=== PATIENT | male | born 1950 | race Caucasian/White ===

== ENCOUNTER 2016-12-22 07:40 | Observation (INO) | payer OTHER ==
--- NOTE | 2016-12-22 08:12 | PDOC ---
Abdomen/Flank HPI - General Date Seen by Provider: 12/22/16 Time Seen by Provider: 08:07 Source: POSITIVE: Patient Exam Limitations: POSITIVE: No limitations Nurse's Notes Reviewed & Considered: Yes <Musa Choi - Last Filed: 12/22/16 09:01> - General Date Seen by Provider: 12/22/16 Time Seen by Provider: 09:15 Source: POSITIVE: Patient, RN/MD Exam Limitations: POSITIVE: No limitations Nurse's Notes Reviewed & Considered: Yes - History of Present Illness Body Location Affected: REPORTS: Abdomen Timing: REPORTS: Gradual, Getting Worse Duration: <24 hours (Approximately 12 hours) Severity: Moderate Quality: REPORTS: "Pain" Abdominal Pain Onset Location: REPORTS: Generalized abdomen Abdominal Pain Radiation: REPORTS: No radiation Context: DENIES: None, Activity, Bending, Coughing, Fall, Lifting, Near Fall, Rest, Sitting, Sleep, Standing, Turning, Emotional stress, Camping, Bad Food, Out of Country Travel, Other, Recent Surgery, Recent Trauma Modifying Factors: improves with: Palpation, Movement Associated Symptoms: REPORTS: Nausea. DENIES: Denies symptoms, Back pain, Bloody Emesis, Chest pain, Coffee Grounds Emesis, Chills, Diaphoresis, Fever, Fatigue, Headache, Heartburn, Loss of Appetite, Rash, Shortness of breath, Swelling/mass in abdomen, Syncope, Testicular Pain, Vomiting, Weakness, Grossly Bloody Diarrhea, Constipation, Diarrhea, Dysuria, Incontinent Stool, Incontinent Urine, Mucous Diarrhea, Difficulty Walking, Dizziness, Light Headedness, Numbness, Other Similar Symptoms Previously: No Recent Care Received: REPORTS: Denies Any Prior Injuries Related to Current Complaint?: No <DEJON NAVA - Last Filed: 12/22/16 22:19> - General Chief Complaint: Abdomen Pain Stated Complaint: abd pain/bloating - History of Present Illness Initial Comments: This is a 66-year-old male with a history of increasing abdominal pain which started last night, is getting worse this morning. He describes it as a diffuse burning pain that radiates to his back. Mild associated nausea but no vomiting, no diarrhea, no constipation. He has no fevers chills or body aches. He's never had this pain before. He drinks one beer a day. (Musa Choi) The patient is a 66-year-old male. He presented to the emergency room at around 8 AM and was seen initially by Dr. Choi, who was the emergency physician on duty at that time. Dr. Choi obtained a CBC, CMP, amylase, lipase , urinalysis, and electrocardiogram. He also ordered a CT scan of the abdomen and pelvis with IV contrast, which was pending at the time that I assumed care of the patient at 9:10 AM. Patient states that he began to develop abdominal pain around 9 PM last night, approximately 12 hours prior to presenting to the emergency room. He complains of poorly localized abdominal pain, more in the lower abdomen than the upper abdomen. Patient has had a cholecystectomy. He states his pain has gotten progressively worse. He's not eaten anything since last night is states he has no appetite. No known fevers. No vomiting but some nausea. No diarrhea, melena, hematochezia, hematemesis, dysuria or hematuria. Dr. Choi ordered a GI cocktail and IV Protonix; patient states that this treatment has not improved his pain. (DEJON NAVA) - Patient Home Medications Home Medications: Home Medications Flunisolide [Nasarel] 2 spr NASAL 2-3XD spr 01/11/12 Fluocinonide/Emollient [Fluocinonide-E 0.05% Cream] 60 gm TP BID 01/11/12 Paroxetine HCl 20 mg ORAL QD tab 01/11/12 Aspirin 81 mg PO DAILY tab 01/26/16 Ascorbic Acid [Vitamin C] 500 mg PO DAILY 12/22/16 Multivitamins W-Minerals [Multivitamin] 1 each PO DAILY 12/22/16 - Patient Allergies Allergies/Adverse Reactions: Allergies Allergy/AdvReac Type Severity Reaction Status Date / Time tapentadol AdvReac Mild redness,ally Verified 12/22/16 14:55 h Past Medical History - heen HEENT History: Other (please comment) Additional HEENT History: WEARS GLASSES Cardiovascular History: Denies History Respiratory History: Denies History Gastrointestinal History: Denies History Genitourinary History: Other (please comment) Additional Genitourinary History: SELF CATH EVERY 3-4 HOURS Endocrine History: Denies History Musculoskeletal History: Denies History Prosthesis or Implant: No Neurological History: Denies History Blood Disorders: Denies History Psychiatric History: Depression, Other (please comment) Additional Psychiatric History: LAST PANIC ATTACK 2-3 YEARS AGO History of Sexually Transmitted Diseases: Yes (GONORRHEA 1973) Cancer History: Other (please comment) Cancer Treatment / Date(s) of Treatment: LAST RADIATION 1 MONTH AGO, TAKES "SHOTS" IN ABD EVERY 90 DAYS History of MDRO: No History of Other Communicable Diseases: No Tobacco Use: Light Tobacco Smoker (1 cigar a day) Alcohol Use: Occasionally Substance Use Type: None Previous Surgical History: Yes Type / Date of Surgery: CHOLECYSTECTOMY/COLONOSCOPY/ PROSTATECTOMY/ TONSILLECTOMY/ UMBILICAL HERNIA Anesthesia Reactions: No Malignant Hyperthermia: No Significant Family History: No pertinent family hx Past Medical History Reviewed: Reviewed - Changes Made <Musa Choi - Last Filed: 12/22/16 09:01> - heen HEENT History: Denies History Cardiovascular History: Denies History Respiratory History: Denies History Gastrointestinal History: Gallbladder Disease (Status post cholecystectomy) Genitourinary History: Denies History Endocrine History: Denies History Musculoskeletal History: Denies History Neurological History: Denies History Blood Disorders: Denies History Psychiatric History: Denies History Male Reproductive History: Denies History Cancer History: Denies History Tobacco Use: Light Tobacco Smoker (One cigar daily) Alcohol Use: Other (One beer daily) Type of alcohol normally used: Beer Substance Use Type: None Previous Surgical History: Yes Type / Date of Surgery: Cholecystectomy Past Medical History Reviewed: Reviewed - No Changes <DEJON NAVA - Last Filed: 12/22/16 22:19> ROS - Limitations ROS Limitations: No Limitations Constitution: REPORTS: Weakness. DENIES: Chills, Fever Cardiovascular: DENIES: Chest Pain Respiratory: DENIES: Shortness Of Breath Neurological: DENIES: Dizziness Gastrointestinal: REPORTS: Abdominal Pain, Nausea. DENIES: Vomitting, Diarrhea , Black Stools Musculoskeletal: REPORTS: Back Pain. DENIES: Muscle Aches Genitourinary: REPORTS: Difficulty Urinating (Self catheterizes) ENT: DENIES: Congestion, Nasal Drainage Psychiatric: POSITIVE: Anxiety <Musa Choi - Last Filed: 12/22/16 09:01> - Limitations ROS Limitations: No Limitations Constitution: REPORTS: Denies Symptoms Cardiovascular: REPORTS: Denies Cardiac Symptoms Respiratory: REPORTS: Denies Resp Symptoms Neurological: REPORTS: Denies Neuro Symptoms Gastrointestinal: REPORTS: Abdominal Pain, Nausea Endocrine: REPORTS: Denies Symptoms Musculoskeletal: REPORTS: Denies MS Symptoms Genitourinary: REPORTS: Denies Symptoms Eyes: REPORTS: Denies Symptoms ENT: REPORTS: Denies Symptoms Skin: REPORTS: Denies Skin Symptoms Lympathic: REPORTS: Denies Lympathic Symptoms Immunologic: POSITIVE: Denies Symptoms Psychiatric: POSITIVE: Denies Psych Symptoms <DEJON NAVA - Last Filed: 12/22/16 22:19> Abdominal/Flank Pain PE - General Appearance General Appearance: POSITIVE: Alert, Cooperative, Moderate Distress - HEENT HEENT: POSITIVE: PERRL. NEGATIVE: Scleral Icterus - Neck Neck: POSITIVE: Normal Inspection - Respiratory Respiratory: POSITIVE: No Respiratory Distress, Breath Sounds Normal. NEGATIVE : Wheezes, Rales, Rhonchi - Cardiovascular Cardiovascular: POSITIVE: Regular Rate and Rhythm, Heart Sounds Normal. NEGATIVE: Murmur - Chest Chest: POSITIVE: Non Tender - Skin Skin: POSITIVE: Warm, Dry, No Rash - Neurological Neurological: POSITIVE: Affect Apporpriate, Oriented X3, Motor Normal - Psychological Psychiatric: POSITIVE: Anxious <Steph,Musa Peck - Last Filed: 12/22/16 09:01> - General Appearance General Appearance: POSITIVE: Alert, Cooperative, No Acute Distress, No Evidence of Trauma - HEENT HEENT: POSITIVE: Head Inspection Nml, Eyes Inspection Nml, Ears Inspection Nml, Nose Inspection Nml, Oral/Dental Inspect. Nml, Pharynx Inspect. Nml, PERRL, EOMI - Neck Neck: POSITIVE: Normal Inspection, No Apparent Injury - Respiratory Respiratory: POSITIVE: No Respiratory Distress, Breath Sounds Normal, Chest Non- Tender - Cardiovascular Cardiovascular: POSITIVE: Regular Rate and Rhythm, Heart Sounds Normal, Equal Pulses, Strong Pulses Peripheral Pulses: Radial (R): 2+, Radial (L): 2+ - Chest Chest: POSITIVE: Non Tender - Abdomen Abdomen: Soft: (All Quadrants), No Splenomegaly: (All Quadrants), No Hepatomegaly: (All Quadrants), No Guarding: (All Quadrants), No Rebound: (All Quadrants), No Palpable Pulse: (All Quadrants), No Palpabale Mass: (All Quadrants), No Distention: (All Quadrants), No Rigidity: (All Quadrants), Tenderness Noted: (LLQ), (RLQ), (LUQ), (RUQ), Hypoactive Bowel Sounds: (LLQ), ( RLQ), (LUQ), (RUQ) - Back Back: POSITIVE: Normal Inspection. 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 He has hypoactive bowel sounds, no organomegaly, although exam is limited by body habitus. (Musa Choi) Abdominal examination shows bowel sounds to be somewhat depressed. Patient has poorly localized abdominal pain on direct palpation, mostly in the lower abdomen. No masses, organomegaly or rebound. (DEJON NAVA) - Extremities Additional Extremities Details: No pitting edema (Musa Choi) Images - Complete Complete: 1 - Abdominal pain on palpation <DEJON NAVA - Last Filed: 12/22/16 22:19> Abdomen Progress - Results Reviewed by me Lab Results Reviewed: Yes EKG Interpreted/Reviewed By Me:: Yes EKG Interpretation:: POSITIVE: Normal Sinus Rhythm, Normal Rate, Normal Intervals, Normal QRS, Normal ST/T - Patient's Progress Pain Medication Addressed: POSITIVE: Yes Re-examine Time: 09:08 Re-Examine Comment: Patient states that he has had mild improvement in pain with morphine. Status: POSITIVE: Improved <Musa Choi - Last Filed: 12/22/16 09:01> - Results Reviewed by me Xrays/CTs/US Reviewed by me: Yes Discussed with Radiologist: Yes Radiology Findings: Appendicitis Lab Results Reviewed: Yes EKG Interpreted/Reviewed By Me:: Yes (normal) EKG Interpretation:: POSITIVE: Normal Sinus Rhythm, Normal Rate, Normal Intervals, Normal [place], Normal QRS, Normal ST/T - Patient's Progress Pain Medication Addressed: POSITIVE: Yes (Patient given Dilaudid 2 mg along with Zofran 4 mg IV) School/Work Release Addressed: POSITIVE: Not Applicable Re-examine Time: 10:20 Re-Examine Comment: Diagnosis discussed with patient. Patient kept nothing by mouth. Case discussed with Dr. Ocampo, surgeon, will come to the emergency room to further evaluate and treat. Status: POSITIVE: Unchanged, Re-Examined - Consult Consult (If Yes, Name of Consulting MD & Time Called): Yes (Dr. Ocampo, surgeon, [id number]) Consulting MD will see pt:: POSITIVE: In ED, [facility] [place] Admit Counseled: POSITIVE: Patient, RE: Lab Results, RE: Radiology Results, RE: DX, RE : Need for F/U <DEJON NAVA - Last Filed: 12/22/16 22:19> - Results Reviewed by me Lab Results:: Laboratory Results 12/22/16 12/22/16 Range/Units 07:55 09:20 WBC 10.88 H (4.8-10.8) 10^3/uL RBC 4.63 L (4.70-6.10) 10^6/uL Hgb 14.5 (14.0-18.0) g/dL Hct 41.4 L (42.0-52.0) % MCV 89.4 (80-90) FL MCH 31.3 H (27-31) PG MCHC 35.0 (33-37) g/dL RDW Std Deviation 43.2 (39-50) fL RDW Coeff of Jose 13.5 (11.5-14.5) % Plt Count 198 (140-350) 10*3/uL MPV 8.7 (7.4-12.2) FL Immature Gran % (Auto) 0.3 (0-5) % Neut % (Auto) 88.1 H (50-80) % Lymph % (Auto) 4.4 L (10-50) % [place] % (Auto) 6.4 (5-15) % Eos % (Auto) 0.6 (0-8) % Baso % (Auto) 0.2 (0-1) % Immature Gran # (Auto) 0.03 10*3/UL Neut # (Auto) 9.59 10*3/UL Lymph # (Auto) 0.48 10*3/uL [place] # (Auto) 0.70 (0.3-0.8) 10*3/UL Eos # (Auto) 0.06 10*3/UL Baso # (Auto) 0.02 10*3/UL WBC Morphology Comment Normal morphology (NORM) Plt Morphology Comment Normal morphology (NORM) RBC Morph Comment Normal morphology (NORM) Sodium 135 (135-145) meq/L Potassium 3.7 L (3.8-5.2) meq/L Chloride 99 (98-112) meq/L Carbon Dioxide 24 (23-33) meq/L Anion Gap 12 (5-20) BUN 15 (7-22) mg/dL Creatinine 0.7 (0.70-1.50) mg/dL Estimated GFR > 60 (>60 ml/min/1.73m(2)) BUN/Creatinine Ratio 21.42 H (6-20) Glucose 117 H (78-110) mg/dL Calculated Osmolality 281.0 (267-292) mOsm/kg Calcium 9.3 (8.7-10.7) mg/dL Total Bilirubin 0.7 (0.3-1.2) mg/dL AST 37 (21-57) IU/L ALT 41 (21-72) IU/L Alkaline Phosphatase 101 (38-126) IU/L Troponin I < 0.012 (< 0.040) ng/mL Total Protein 7.4 (6.1-8.0) g/dL Albumin 4.4 (3.5-4.8) g/dL Globulin 3.0 (2.50-4.10) g/dL Albumin/Globulin Ratio 1.40 (1.3-2.0) mg/g Amylase 42 (30-110) U/L Lipase 52 (23-300) IU/L Ur Collection Type Cath specimen Urine Color Yellow Urine Clarity Clear (CLEAR) Urine pH 7.0 (5.0-8.5) Ur Specific [place] 1.015 (1.005-1.030) Urine Protein Negative (NEG) mg/dl Urine Glucose (UA) Negative (NEG) mg/dL Urine Ketones Negative (NEG) Urine Occult Blood Negative (NEG) Urine Nitrate Negative (NEG) Urine Bilirubin Negative (NEG) Urine Urobilinogen 0.2 (0.2) EU/dL Ur Leukocyte Esterase Negative (NEG) Ur Culture Indicated? Culture not set Patient Care Time - Estimated PCT Patient Care Time (In Minutes): 40 <DEJON NAVA - Last Filed: 12/22/16 22:19> Vital Signs - VS Reviewed Vital Signs Reviewed: Yes <DEJON NAVA - Last Filed: 12/22/16 22:19> - Recent Vital Signs Vital Signs: Vital Signs (Last 8 hours) Temp Pulse Pulse Resp BP BP Pulse Ox 12/22/16 21:00 97.4 F 75 20 150/85 97 12/22/16 19:00 78 18 12/22/16 17:00 97.9 F 78 18 172/62 95 12/22/16 16:00 97.4 F 78 18 160/89 98 12/22/16 15:45 97.8 F 68 18 170/96 97 12/22/16 15:30 97.7 F 68 18 154/84 94 12/22/16 15:15 97.4 F 67 18 149/91 96 12/22/16 15:05 97.7 F 63 20 150/82 95 12/22/16 15:00 97.7 F 65 18 148/65 95 12/22/16 14:41 97.8 F 64 12 118/72 12/22/16 14:36 68 15 140/73 12/22/16 14:26 71 24 140/71 12/22/16 14:16 65 18 132/89 12/22/16 14:11 71 17 129/56 12/22/16 14:06 71 17 131/77 Discharge <Musa Choi - Last Filed: 12/22/16 09:01> Discharge Disposition: Transferred to OR Date Decision to Admit to Inpatient: 12/22/16 Time Decision to Admit to Inpatient: 10:20 <DEJON NAVA - Last Filed: 12/22/16 22:19> Clinical Impression: Appendicitis Condition: Stable
[2016-12-22] MEDS ORDERED: Pantoprazole Inj 40 MG in Normal Saline Flush 10 ML IVP ONE (08:14)
[2016-12-22] MEDS ORDERED: NORMAL SALINE 10 ML SYRINGE FLUSH IVP PRN ×4 (08:14→14:52)
[2016-12-22] MEDS ORDERED: MORPHINE SULFATE 2 MG/1 ML IVP ONE (08:14)
[2016-12-22] MEDS ORDERED: ONDANSETRON 4 MG/2 ML VIAL IVP ONE ×2 (08:14→10:00)
[2016-12-22] MEDS ORDERED: Sodium Chloride 0.9% 1,000 ML PRIMARY IV ONE (08:14)
[2016-12-22 08:26] LABS: BASOPHILS # (AUTO) 0.02 10*3/UL; BASOPHILS % (AUTO) 0.2 % (0-1); EOSINOPHILS # (AUTO) 0.06 10*3/UL; EOSINOPHILS % (AUTO) 0.6 % (0-8); HEMATOCRIT 41.4 % (42.0-52.0); HEMOGLOBIN 14.5 g/dL (14.0-18.0); LYMPHOCYTES # (AUTO) 0.48 10*3/uL; MEAN CORPUSCULAR HEMOGLOBIN 31.3 PG (27-31); MEAN CORPUSCULAR VOLUME 89.4 FL (80-90); MEAN PLATELET VOLUME 8.7 FL (7.4-12.2); MONOCYTES % (AUTO) 6.4 % (5-15); NEUTROPHILS # (AUTO) 9.59 10*3/UL; NEUTROPHILS % (AUTO) 88.1 % (50-80); RED BLOOD COUNT 4.63 10^6/uL (4.70-6.10)
[2016-12-22 08:32] LABS: BLOOD UREA NITROGEN 15 mg/dL (7-22); BUN/CREATININE RATIO 21.42 (6-20); CALCIUM 9.3 mg/dL (8.7-10.7); EST GLOMERULAR FILTRATION > 60 (>60 ml/min/1.73m(2)); LIPASE 52 IU/L (23-300); SERUM ALBUMIN 4.4 g/dL (3.5-4.8)
[2016-12-22 08:52] LABS: PLATELET MORPHOLOGY COMMENT NORMAL MORPHOLOGY (NORM); RBC MORPHOLOGY COMMENT NORMAL MORPHOLOGY (NORM); WBC MORPHOLOGY COMMENT NORMAL MORPHOLOGY (NORM)
[2016-12-22] MEDS ORDERED: MORPHINE SULFATE 4 MG/1 ML IVP ONE (09:15)
[2016-12-22] MEDS ORDERED: Belladon/PHENobarbital Elixir 10 ML, Lidocaine Viscous Liquid 2% 15 ML, Mag Hyd/Al Hyd/... PO ONE ×3 (09:15)
[2016-12-22 09:25] LABS: BILIRUBIN,URINE NEGATIVE (NEG); COLOR,URINE YELLOW; GLUCOSE, URINE (UA) NEGATIVE (NEG); NITRATE,URINE NEGATIVE (NEG); OCCULT BLOOD,URINE NEGATIVE (NEG); PROTEIN,URINE NEGATIVE (NEG); UROBILINOGEN,URINE 0.2 EU/dL (0.2)
[2016-12-22 09:26] LABS: CLARITY,URINE CLEAR (CLEAR); URINE SAMPLE TYPE CATH SPECIMEN
[2016-12-22] MEDS: HYDROmorphone 2 MG/1 ML IVP ONE ×2 (10:12→10:32)
--- NOTE | 2016-12-22 11:15 | DI ---
CT ABDOMEN SCAN WITH IV CONTRAST, 12/22/2016 7:15 AM : Clinical History: Abdominal pain. Previous Exam: 03/09/2014. Scans are performed from the lower lung bases through the liver and kidneys with IV contrast. 75 ml o f Isovue 300 was injected IV. No oral or rectal contrast was ordered. The lung bases are clear. There is diffuse fatty infiltration of the liver. In the superior and poste rior aspect of the right lobe of the liver are multiple calcifications that were present before. Thes e may be secondary to previous trauma but more likely are related to previous exposure to either TB o r histoplasmosis. The patient is status post cholecystectomy. There is no abnormality of the spleen, pancreas, and adrenal glands. Both kidneys are normal in size, shape, position and contour. There is no hydronephrosis or hydroureter. No renal or ureteral calculi are present. There are no abnormal ret rocrural or periaortic nodes. No ascites is present. READIN. Diffuse fatty infiltration of the liver. 2. The remainder of the examination is normal. CT PELVIS SCAN WITH IV CONTRAST, 12/22/2016 7:15 AM: Clinical History: See above. Previous Exam: 03/09/2014. Scans are performed from just superior to the umbilicus to the symphysis pubis with IV contrast. This is the same bolus of contrast used for the CT scans of the abdomen. Scans through the lower abdomen and pelvis show no masses or abnormal fluid collections. There is no adenopathy. The appendix is in a retrocecal location and shows abnormal dilatation with a transverse diameter up to 12 mm in diameter. There is periserosal inflammatory/infiltrative change associated wi th the appendix. There are high density areas within the appendix near the base of the appendix and e xtending toward the mid and distal thirds of the appendix and these may represent fecaliths. There is no evidence of perforation. The small bowel is normal. There is fat within the ileocecal valve proba wilfred representing a lipoma. The colon is normal. There are no hernias. READIN. Acute appendicitis. The appendix is in a retrocecal location. There is no evidence of perforation or of an abscess. 2. The remainder of the examination is normal.
--- NOTE | 2016-12-22 11:41 | CONSULT ---
Consult Note - Consult Consult Date: 12/22/16 Reason for Consult: PreOp Consulation : General Surgery Requesting Physician: Dr. Jack Primary Care Provider: NONE NONE - History of Present Illness History of Present Illness: Patient is a 66-year-old male who had some mild abdominal discomfort yesterday. Last night at 9:00pm he developed significant right lower quadrant abdominal pain. This was progressive throughout the night. He presented to the emergency room this morning. His white count was slightly elevated at 10,800. CAT scan was done which shows findings of acute appendicitis. He has a 12 mm retrocecal appendix with inflammatory stranding. I am asked to see him for evaluation. Patient has had no fever or chills. No nausea or vomiting. He's had no appetite and has not eaten since yesterday. He's never had a pain like this before. Review of Systems - Gastrointestinal Gastrointestinal / Abdominal: REPORTS: Abdominal Pain, See HPI Past Medical History Medical History: Anxiety. Surgical History: Cholecystectomy. Prostatectomy. Tobacco Use: Light Tobacco Smoker (1 cigar a day) Substance Use Type: None Alcohol Use: Occasionally (A beer a day with his cigar.) Medication / Allergies Home Medications: Home Medications Medication Instructions Recorded Confirmed Type Flunisolide [Nasarel] 2 spr NASAL 2-3XD spr 01/11/12 02/25/16 History Fluocinonide/Emollient 60 gm TP BID 01/11/12 02/25/16 History [Fluocinonide-E 0.05% Cream] Paroxetine HCl 20 mg ORAL QD tab 01/11/12 02/25/16 History Aspirin 81 mg PO DAILY tab 01/26/16 02/25/16 History Ascorbic Acid [Vitamin C] 500 mg PO DAILY 12/22/16 12/22/16 History Multivitamins W-Minerals 1 each PO DAILY 12/22/16 12/22/16 History [Multivitamin] Allergies/Adverse Reactions: Allergies Allergy/AdvReac Type Severity Reaction Status Date / Time tapentadol AdvReac Mild redness,ally Verified 12/22/16 07:52 h Exam - Vitals Vital Signs: Vital Signs Temperature 97.3 F Temperature Source Temporal Artery Scan Pulse Rate [Pulse Oximeter 75 Right] Respiratory Rate 24 Blood Pressure [Right Arm] 168/82 Pulse Ox 95 Oxygen Delivery Method Room Air Height 5 ft 11 in Weight 87.09 kg - General General Appearance: POSITIVE: No Acute Distress, Cooperative - Respiratory Respiratory Exam: POSITIVE: Clear to Auscultation - Bilaterally, Breathing Non Labored - Cardiovascular Cardiovascular Exam: POSITIVE: No Murmur - GI/Abdominal GI/Abdominal Exam: POSITIVE: Soft, Hypoactive Bowel Sounds Additional GI/Abdominal Exam Details: Focal right lower quadrant tenderness with voluntary guarding. No peritoneal irritation. - Rectal Rectal Exam: POSITIVE: Deferred - Neurological Neurological Exam: POSITIVE: Alert, Oriented x 3 - Psychiatric Psychiatric Exam: POSITIVE: Normal Affect, Normal Mood Results - Labs CBC and BMP: 12/22/16 07:55 12/22/16 07:55 Labs - Last 24 Hours: Laboratory Results 12/22/16 12/22/16 Range/Units 07:55 09:20 WBC 10.88 H (4.8-10.8) 10^3/uL RBC 4.63 L (4.70-6.10) 10^6/uL Hgb 14.5 (14.0-18.0) g/dL Hct 41.4 L (42.0-52.0) % MCV 89.4 (80-90) FL MCH 31.3 H (27-31) PG MCHC 35.0 (33-37) g/dL RDW Std Deviation 43.2 (39-50) fL RDW Coeff of Jose 13.5 (11.5-14.5) % Plt Count 198 (140-350) 10*3/uL MPV 8.7 (7.4-12.2) FL Immature Gran % (Auto) 0.3 (0-5) % Neut % (Auto) 88.1 H (50-80) % Lymph % (Auto) 4.4 L (10-50) % [place] % (Auto) 6.4 (5-15) % Eos % (Auto) 0.6 (0-8) % Baso % (Auto) 0.2 (0-1) % Immature Gran # (Auto) 0.03 10*3/UL Neut # (Auto) 9.59 10*3/UL Lymph # (Auto) 0.48 10*3/uL [place] # (Auto) 0.70 (0.3-0.8) 10*3/UL Eos # (Auto) 0.06 10*3/UL Baso # (Auto) 0.02 10*3/UL WBC Morphology Comment Normal morphology (NORM) Plt Morphology Comment Normal morphology (NORM) RBC Morph Comment Normal morphology (NORM) Sodium 135 (135-145) meq/L Potassium 3.7 L (3.8-5.2) meq/L Chloride 99 (98-112) meq/L Carbon Dioxide 24 (23-33) meq/L Anion Gap 12 (5-20) BUN 15 (7-22) mg/dL Creatinine 0.7 (0.70-1.50) mg/dL Estimated GFR > 60 (>60 ml/min/1.73m(2)) BUN/Creatinine Ratio 21.42 H (6-20) Glucose 117 H (78-110) mg/dL Calculated Osmolality 281.0 (267-292) mOsm/kg Calcium 9.3 (8.7-10.7) mg/dL Total Bilirubin 0.7 (0.3-1.2) mg/dL AST 37 (21-57) IU/L ALT 41 (21-72) IU/L Alkaline Phosphatase 101 (38-126) IU/L Troponin I < 0.012 (< 0.040) ng/mL Total Protein 7.4 (6.1-8.0) g/dL Albumin 4.4 (3.5-4.8) g/dL Globulin 3.0 (2.50-4.10) g/dL Albumin/Globulin Ratio 1.40 (1.3-2.0) mg/g Amylase 42 (30-110) U/L Lipase 52 (23-300) IU/L Ur Collection Type Cath specimen Urine Color Yellow Urine Clarity Clear (CLEAR) Urine pH 7.0 (5.0-8.5) Ur Specific [place] 1.015 (1.005-1.030) Urine Protein Negative (NEG) mg/dl Urine Glucose (UA) Negative (NEG) mg/dL Urine Ketones Negative (NEG) Urine Occult Blood Negative (NEG) Urine Nitrate Negative (NEG) Urine Bilirubin Negative (NEG) Urine Urobilinogen 0.2 (0.2) EU/dL Ur Leukocyte Esterase Negative (NEG) Ur Culture Indicated? Culture not set - Imaging Status: Image Reviewed by Me, Report Reviewed by Me Assessment and Plan - Patient Problems (1) Acute appendicitis Current Visit: Yes Status: Acute Priority: High Diagnosis Date: 12/22/16 Comment: Proceed with appendectomy. The procedure has been discussed with the patient in complete yet simple terms including benefits, risks, and alternatives. All questions have been answered. Informed consent has been obtained.
[2016-12-22] MEDS ORDERED: Ertapenem Inj 1 GM in Sodium Chloride 0.9% 100 ML IV SCH (11:45)
[2016-12-22] MEDS ORDERED: ERTAPENEM 1 GM VIAL ONE (12:06)
[2016-12-22] MEDS ORDERED: Sodium Chloride 0.9% 100 ML IV ONE (12:06)
[2016-12-22] MEDS ORDERED: ROCURONIUM 10 MG/1 ML - 5 ML VIAL IVP ONE (12:26)
[2016-12-22] MEDS ORDERED: fentaNYL Inj 250 MCG/5 ML VIAL ONE (12:27)
[2016-12-22] MEDS ORDERED: LIDOCAINE MPF 2% - 5 ML (20 MG/1 ML) ONE (12:27)
[2016-12-22] MEDS ORDERED: MIDAZOLAM 5 MG/1 ML ONE (12:27)
[2016-12-22] MEDS ORDERED: BUPIVACAINE 0.5% W/ EPI - 10 ML VIAL ONE (12:36)
[2016-12-22] MEDS: Lactated Ringers 1,000 ML PRIMARY IV SCH ×3 (12:44→18:21)
[2016-12-22] MEDS ORDERED: KETOROLAC 30 MG/1 ML VIAL ONE (13:06)
[2016-12-22] MEDS ORDERED: ONDANSETRON 4 MG/2 ML VIAL ONE (13:06)
[2016-12-22] MEDS ORDERED: SUGAMMADEX SODIUM 200 MG/2 ML VIAL IV ONE (13:19)
[2016-12-22] MEDS ORDERED: HYDROmorphone 2 MG/1 ML IVP PRN (14:14)
[2016-12-22] MEDS ORDERED: fentaNYL Inj 100 MCG/2 ML VIAL IVP PRN (14:14)
[2016-12-22] MEDS ORDERED: PROMETHAZINE 25 MG/1 ML VIAL IM PRN (14:14)
[2016-12-22] MEDS ORDERED: Lactated Ringers 1,000 ML PRIMARY IV SCH (14:15)
--- NOTE | 2016-12-22 14:20 | GEN.OPNOTE ---
Operative Note Surgery Date: 12/22/16 Preoperative Diagnosis: Acute retrocecal appendicitis. Postoperative Diagnosis: Acute retrocecal appendicitis. Procedure: Open appendectomy. Surgeon: Ari Ocampo MD Anesthesia Provider: Zi Santos CRNA Anesthesia Type: General Estimated Blood Loss (mL): 3 Fluids: 1200 mL of crystalloid. 1 g of IV Invanz at the start of the procedure. 30 mg of IV Toradol at the end of the procedure. Pathology: Specimen to pathology. Indications: Physical exam and CT scan consistent with acute appendicitis. Findings: Acute appendicitis. No rupture. Complications: None. Operative Summary: Patient was taken to the operating room and placed on the operating table in the supine position. Following the induction of adequate general anesthetic the abdomen was prepped and draped in a sterile fashion. A surgical timeout was done. Standard incision was made over McBurney's point. It was carried down to the fascia with electrocautery. The external oblique was split along the course of its fibers using electrocautery. The external oblique was retracted. The abdominal wall was transected using a muscle-splitting technique. The peritoneum was elevated and incised. An Devin retractor was placed. The cecum and appendix were mobilized. Once fully mobilized the mesoappendix was taken down by serially clamping dividing and ligating the mesoappendix until the appendix was freed to its base. The base of the appendix was clamped with a straight clamp. The clamp was unclamped and moved distally. The base was tied off with an 0 chromic. The appendix was amputated. The stump was cauterized and inverted into the base of the cecum using a Z-plasty suture of 2- 0 Vicryl. Hemostasis was assured. Appropriate irrigation and suctioning were performed. The cecum was returned to the relative anatomic position and covered with omentum. The peritoneum was closed with 2-0 Vicryl. The muscle layers were closed with 0 Vicryl. The wound was irrigated as we closed in layers. Final irrigation was 1/2% Marcaine with epinephrine. This was allowed to sit in the wound for several minutes and then removed. Halima's fascia was closed with 2- 0 Vicryl. The skin was closed with surgical alcira followed by a sterile dressing. The patient tolerated the entire procedure well without complication. He was taken to the recovery room in stable condition. All counts were correct. Patient Problems - Patient Problem List (1) Acute appendicitis Current Visit: Yes Status: Acute Diagnosis Date: 12/22/16 Priority: High
[2016-12-22] MEDS ORDERED: ONDANSETRON 4 MG/2 ML VIAL IVP PRN (14:52)
[2016-12-22] MEDS ORDERED: MORPHINE SULFATE 2 MG/1 ML IVP PRN (14:52)
[2016-12-22] MEDS: HYDROcodone-APAP 5 MG -325 MG TABLET PO PRN ×2 (15:33→19:30)
--- NOTE | 2016-12-22 15:42 | EKG ---
[address] [address] Measurements Intervals [place] Rate: 72 P: 59 VA: 188 QRS: -25 QRSD: 97 T: 67 QT: 385 QTc: 409 Interpretive Statements SINUS RHYTHM BORDERLINE LEFT AXIS DEVIATION No previous ECG available for comparison Electronically Signed On 12-22-16 16:57:29 MDT by Solomon Sawyer [id number]
[2016-12-22] MEDS: KETOROLAC 30 MG/1 ML VIAL IVP SCH (19:30)
[2016-12-22] MEDS: DOCUSATE 100 MG CAPSULE PO SCH (20:44)
[2016-12-23] MEDS: Lactated Ringers 1,000 ML PRIMARY IV SCH ×2 (00:55→01:00)
[2016-12-23] MEDS: HYDROcodone-APAP 5 MG -325 MG TABLET PO PRN ×3 (00:56→09:04)
[2016-12-23] MEDS: KETOROLAC 30 MG/1 ML VIAL IVP SCH ×2 (01:31→06:50)
[2016-12-23 05:50] LABS: BASOPHILS # (AUTO) 0.02 10*3/UL; BASOPHILS % (AUTO) 0.4 % (0-1); EOSINOPHILS # (AUTO) 0.18 10*3/UL; EOSINOPHILS % (AUTO) 3.2 % (0-8); HEMOGLOBIN 13.3 g/dL (14.0-18.0); LYMPHOCYTES # (AUTO) 0.54 10*3/uL; MEAN CORPUSCULAR HEMOGLOBIN 31.4 PG (27-31); MEAN CORPUSCULAR HGB CONC 34.1 g/dL (33-37); MEAN PLATELET VOLUME 8.4 FL (7.4-12.2); MONOCYTES # (AUTO) 0.66 10*3/UL (0.3-0.8); MONOCYTES % (AUTO) 11.7 % (5-15); NEUTROPHILS # (AUTO) 4.24 10*3/UL; NEUTROPHILS % (AUTO) 74.8 % (50-80); RED BLOOD COUNT 4.24 10^6/uL (4.70-6.10)
[2016-12-23 06:08] LABS: BLOOD UREA NITROGEN 12 mg/dL (7-22); BUN/CREATININE RATIO 17.14 (6-20); CALCIUM 8.3 mg/dL (8.7-10.7); EST GLOMERULAR FILTRATION > 60 (>60 ml/min/1.73m(2))
[2016-12-23 06:28] LABS: PLATELET MORPHOLOGY COMMENT NORMAL MORPHOLOGY (NORM); RBC MORPHOLOGY COMMENT NORMAL MORPHOLOGY (NORM); WBC MORPHOLOGY COMMENT SEE COMMENTS (NORM)
[2016-12-23] MEDS ORDERED: PARoxetine Tab 20 MG TAB PO SCH (09:00)
[2016-12-23] MEDS: DOCUSATE 100 MG CAPSULE PO SCH (09:04)
[2016-12-23 12:27] VITALS: RESP 18; TEMP 974
--- NOTE | 2016-12-23 13:29 | DCSUMMARY ---
Discharge Summary Admit Date: 12/22/16 Discharge Date: 12/23/16 Admitting Diagnosis: Acute appendicitis. Discharge Diagnosis: Acute appendicitis. Status post appendectomy. Primary Surgery and Date: Appendectomy. 12/22/2016. Hospital Course: Patient is a 66-year-old male who presented to the emergency room with acute appendicitis. He was taken for an open appendectomy yesterday. His postoperative course has been unremarkable. He is afebrile and his vital signs are stable. He is tolerating a regular diet. His pain is controlled. He is passing gas and has had a bowel movement. He has self catheterizing himself as per his usual. He is ready to be discharged home for outpatient follow-up. White count is normal this morning. Exam - Vitals Vital Signs: Vital Signs Temperature 974 F Temperature Source Temporal Artery Scan Pulse Rate [Pulse Oximeter 74 Right] Respiratory Rate 18 Blood Pressure [Right Arm] 161/75 Pulse Ox 93 Oxygen Delivery Method Room Air Height 5 ft 11 in Weight 87.09 kg - General General Appearance: POSITIVE: No Acute Distress, Cooperative - Respiratory Respiratory Exam: POSITIVE: Clear to Auscultation - Bilaterally, Breathing Non Labored - Cardiovascular Cardiovascular Exam: POSITIVE: RRR, No Murmur - GI/Abdominal GI/Abdominal Exam: POSITIVE: Normal Bowel Sounds, Non Distended, Soft Additional GI/Abdominal Exam Details: Incision looks good. Has been redressed. No sign of infection. Abdomen is soft with normoactive bowel tones. Incisional tenderness only. - Neurological Neurological Exam: POSITIVE: Alert, Oriented x 3 - Psychiatric Psychiatric Exam: POSITIVE: Normal Affect, Normal Mood Data Perinent Studies: CT scan showing acute appendicitis. Procedures: Open appendectomy. Patient Problems - Patient Problem List (1) Acute appendicitis Current Visit: Yes Status: Acute Diagnosis Date: 12/22/16 Priority: High Comment: Status post open appendectomy. Doing well. Ray to be discharged home for outpatient follow-up.
== END 2016-12-23 13:43 | disposition home or self-care (01) ==
LOC: ER 07:40 → SDSC 12:26 → UNDOADMOB 14:49 → MED/SURG 14:49 → UNDODISOB 12-23 13:43
PROVIDERS: ADMIT Surgery; ATTEND Surgery
DX: K35.89 Other acute appendicitis (principal)
CPT/HCPCS: 36415; 44950; 74177; 80048; 80053; 81003; 82150; 83690; 84484; 85025 ×2; 93005; 93010; 94150 ×2; 94761 ×2; 96361; 96374; 96375; 96376; 99284 ×2; J1885 ×2; J2704; J3010; J1170; J1335; J2001; J2250; J2270; J2405; J3490; J7030; J7050; J7120

== ENCOUNTER → 2016-12-29 | Outpatient (CLI) | payer OTHER | LOC: MMPC 11:11 | PROVIDERS: ATTEND Surgery | DX: Z48.815 Encounter for surgical aftercare following surgery on the digestive system (principal) ==